=== PATIENT | female | born 1955 | race Caucasian/White ===

== ENCOUNTER 2019-05-18 11:48 | Day surgery (SDC) | payer SELFPAY ==
[2019-05-15 18:19] VITALS: BMI 34.4
[2019-05-18] VITALS (9 sets, daily range): BP systolic 137–180; BP diastolic 64–96; PULSE 62–99; RESP 14–18; TEMP 36.2–36.6; O2SAT 91–98
[2019-05-18] MEDS: sodium chloride 0.9% 1,000 ML 30 ML IV (13:05)
--- NOTE | 2019-05-18 13:18 | ANES.PREANES ---
Pre-Anesthetic Assessment Pre-Anesthetic Assessment: Height/Weight: Height 1.73 m Weight 102.965 kg Temp Pulse Resp BP Pulse Ox 97.1 F L 62 18 137/86 98 05/18/19 12:39 05/18/19 12:39 05/18/19 12:39 05/18/19 12:39 05/18/19 12:39 Preop Diagnosis: cholelithiasis Proposed Procedure: Operation Date: 05/18/19 14:15 Proposed Procedures p Laparoscopic Cholecystectomy/possible open(Not Applicable) - Timi Mark MD Last intake: Intake Last Liquid Date 05/18/19 Last Liquid Time 08:00 Last Solid Date 05/04/19 Last Intake: 08:00 Airway: Submandibular: WNL Cervical ROM: WNL MP: 2 GI: Comments: cholelithiasis Anesthetic Plan: ASA status: II Anesthesia: General Meds/Allergies Current Medications: Current Medications Generic Name Dose Route Start Last Admin Trade Name Freq PRN Reason Stop Dose Admin Sodium Chloride 1,000 mls @ 30 ml s/hr 05/18/19 12:45 05/18/19 13:05 Sodium Chloride 0.9% IV 05/19/19 12:44 30 mls/hr .Q24H AZALIA Administration PFSH Anesthesia PFSH: Family History (Updated 05/15/19 @ 18:14 by [employer]) Mother Heart disease Social History (Updated 05/15/19 @ 18:14 by [employer]) Smoking and tobacco status: never smoked Alcohol intake: never Data Anesthesia Cardiac Studies: No Data to Display
--- NOTE | 2019-05-18 14:00 | PM.HPUD ---
H&P update H&P Update: DATE OF SURGERY/PROCEDURE: 05/18/19 DATE H&P PERFORMED: 04/08/19 PLANNED PROCEDURE: Operation Date: 05/18/19 14:15 Proposed Procedures p Laparoscopic Cholecystectomy/possible open(Not Applicable) - Timi Mark MD Full H&P HPI: PLANNED PROCEDURE: Laparoscopic cholecystectomy HPI: This is a pleasant 63 years old female patient presenting with symptomatic cholelithiasis, shunt was counseled for laparoscopic cholecystectomy possible open. ROS: ROS: Pertinent systems have been reviewed Medications/Allergies: Current Medications: Current Medications Generic Name Dose Route Start Last Admin Trade Name Freq PRN Reason Stop Dose Admin Sodium Chloride 1,000 mls @ 30 ml s/hr 05/18/19 12:45 05/18/19 13:05 Sodium Chloride 0.9% IV 05/19/19 12:44 30 mls/hr .Q24H AZALIA Administration Perinent History: Family History: Family History (Updated 05/15/19 @ 18:14 by Kajal Saravia) Mother Heart disease Social History: Social History Smoking and tobacco status: never smoked Alcohol intake: never Pertinent Exam Findings: PHYSICAL EXAM: oriented x 3, clear to auscultation bilaterally and regular rate & rhythm OTHER PERTINENT EXAM FINDINGS: Patient is conscious alert oriented X3 BMI 35 Head and neck examination PERRLA no masses no cervical lymphadenopathy no jaundice Cardiac examination audible S1-S2 no murmurs no gallops no arrhythmias Abdomen nontender nondistended soft no organomegaly guarding or rigidity/no signs of peritonitis Obese Extremities no cyanosis no clubbing no edema Pertinent Data: PERTINENT DATA: Cholelithiasis A&P Assessment and plan (1) Cholelithiasis: Plan of care; After thorough history physical examination and reviewing the chart ,I counseled the patient for laparoscopic cholecystectomy possible open, indications risks including but not limited injury to the common bile duct and other viscera.benefits and alternatives all discussed with the patient, and she did agree to proceed. All questions have been answered and all concerns have been addressed to patient's satisfaction. Informed consent per chart Status: Acute Code(s): K80.20 - Calculus of gallbladder without cholecystitis without obstruction
[2019-05-18] MEDS: heparin 5,000 unit/mL INJ 1 mL 3000 UNIT SUBCUT (14:30)
[2019-05-18] MEDS: clindamycin 900 MG/50 ML PREMIX 100 MG IV (15:15)
[2019-05-18] MEDS: lidocaine 2% INJ 20 mL INJECTION (15:35)
--- NOTE | 2019-05-18 16:24 | PM.OP ---
Operative Report Date of procedure: 05/19/19 Preop Diagnosis: Symptomatic cholelithiasis Post-op diagnosis: other (Acute on top of chronic calculus cholecystitis with adhesions) Post-op Findings: Acute on top of chronic calculus cholecystitis with adhesions Procedure Done: Laparoscopic cholecystectomy Specimens removed/disposition: Gallbladder and contents Surgeon: Timi Mark [employer] Vehicle Driver: Moira Solomon Anesthesia: general and other ([employer]) Estimated blood loss (mL): 10 Complications: No immediate complication Findings: Acute on top of chronic calculus cholecystitis Condition: stable Disposition: same day Brief History: This is a pleasant 63 years old female patient with history of symptomatic cholelithiasis, patient was referred to me for further evaluation. Plan of care; After thorough history physical examination and reviewing the chart ,I counseled the patient for laparoscopic cholecystectomy possible open, indications risks including but not limited injury to the common bile duct and other viscera.benefits and alternatives all discussed with the patient, and she did agree to proceed. All questions have been answered and all concerns have been addressed to patient's satisfaction. Informed consent per chart Procedure: Patient was identified in the holding area and taken back to the operative suite, placed in supine position intubated by anesthesia . Time-out was done verifying the patient's name/date of /planned procedure and destination after the procedure, all were in agreement. SCDs confirmed to be functioning, preoperative antibiotics administered per protocol, and beta miriam protocol was confirmed. Patient was appropriately secured to the table, footboard was applied to the OR table, before prep and drape anesthesia was asked to tilt the table back and forth to make sure that the patient is appropriately secured and she was. Prep and drape of the abdomen was done under the usual sterile technique, followed by that supraumbilical skin incision,skin incision was done by a 15 blade knife, and stay sutures were applied to the fascia and [place] trocar technique was used to enter the abdominal without injuring any abdominal viscera, started by low flow gas insufflation followed by a high flow, started with a 10 mm laparoscope and under direct vision there was no evidence of any injuries, the scope then switched to a 30? ,10 millimeter scope and under direct visualization 5 millimeter trocar was inserted in the epigastric region followed by two 5 mm trocars were inserted in the right upper quadrant that was done after injection of local lidocaine 2% at all incision sites. Gallbladder showed acute calculus cholecystitis with edema &with adhesions Liver noticed to be enlarged likely due to fatty liver Patient was then positioned in the head up and tilted to the left dissection started by taking adhesions down using [place] forceps with heat, continued dissection until I identified the critical view of the cystic duct and cystic artery where seen connected to the gallbladder. Clips were applied on the cystic duct towards the common bile duct 1 towards the gallbladder then divided is in sharp scissors, 2 clips were then applied onto the cystic artery and 1 towards the gallbladder and divided by sharp scissors. Dissection was then carried along of the gallbladder from the gallbladder fossa using cautery as well as sharp dissection with heat energy. The gallbladder then was dissected out from the gallbladder fossa totally , cholecystectomy was then achieved and was placed in an Endo Catch bag and then retrieved from the [place] trocar site under direct visualization using a 5 mm 30? scope through the epigastric trocar, specimen was then passed to the circulating nurse to go for permanent pathology,irrigation and hemostasis was done to the gallbladder fossa after hemostasis was secured, final survey laparoscopy was done that showed no injuries.Suction irrigation was obtained The supraumbilical fascial defect was then closed using interrupted Vicryl sutures using a fascial closure device ;Vasquez Gilbert under direct visualization Gas was allowed to deflate,Trocars were then taken out under direct vision there was no evidence of bleeding Specimen was passed to the circulating nurse for permanent pathology. No drains were placed and the supraumbilical incision as well as all trocar sites were closed by by 4-0 Monocryl to approximate the skin edges of the supraumbilical incision, dressing was applied in the form of Dermabond and the patient patient got extubated and was taken to recovery area in a stable condition. Count of sponges, needles and instruments were completed at the end of the procedure I was present for the whole entire procedure.
--- NOTE | 2019-05-18 17:01 | SUR.PHASEI ---
1701 PT NOW REPOSITIONED SELF TO LT SIDE , DOES NOT AWAKE TO TOUCH, OR VERBAL STIMULI, VSS PT SATS ON 8L MASK 94, RESP 14 NO DISTRESS NOTED ABD SOFT.
--- NOTE | 2019-05-18 17:08 | SUR.PHASEI ---
PT ON RA , AWAKES TO VOICE, PT NODS HEAD YES TO PAIN BUT UNABLE TO VOICE NUMBER , FACE SCALE 1-2 RESP EVEN AND UNALBORED SATS 91\\5
[2019-05-18] MEDS: HYDROcodone-acetaminophen 5-325 mg Tablet 1 TAB PO (18:10)
== END 2019-05-18 18:35 | disposition home or self-care (01) ==
PROVIDERS: Family Provider Nurse Practitioner Family; PCP Nurse Practitioner Family; Visit Provider Surgery
PROC: 0FT44ZZ Resection of Gallbladder, Percutaneous Endoscopic Approach (ICD-10-PCS; CPT 47562; principal; 2019-05-18 14:15)
DX: K80.10 Calculus of gallbladder with chronic cholecystitis without obstruction (principal); Z82.49 Family history of ischemic heart disease and other diseases of the circulatory system
CPT/HCPCS: 47562; 12345; 88304; 96365; J0131; J1100; J1644; J2001; J2405; J2704; J3010; J3490; J7030

== ENCOUNTER → 2025-03-02 09:47 | Outpatient (BNVA) | payer MEDICARE, SELFPAY | PROVIDERS: Family Provider Nurse Practitioner Family; PCP Nurse Practitioner Family; Visit Provider Surgery | DX: R13.10 Dysphagia, unspecified (principal); K21.9 Gastro-esophageal reflux disease without esophagitis; R03.0 Elevated blood-pressure reading, without diagnosis of hypertension | CPT/HCPCS: 99204 ==

== ENCOUNTER 2025-03-10 08:30 | Outpatient (CLI) | payer MEDICARE, SELFPAY ==
--- NOTE | 2025-03-10 09:00 | FL_ITS ---
WS: [id number] Modified barium swallow, 03/10/2025 Clinical Data: Chest pressure when eating small amounts, food regurgitating and making it difficult to breathe. Comparison: None. Fluoroscopy time: 1min [id number] # of spot films: Findings: The patient swallowed the various mixtures normally. No significant residue was seen. There is minimal impingement by C5-C6 osteoarthritis onto the posterior hypopharynx. There is no aspiration or penetration the barium tablet moved normally from the oral pharynx into the hypopharynx, then the esophagus and finally the stomach. FL/FL barium swallow modifd [id number] Impression: Negative modified barium swallow.
== END 2025-03-10 08:31 | disposition home or self-care (01) ==
PROVIDERS: PCP Nurse Practitioner Family; Visit Provider Surgery
DX: R13.10 Dysphagia, unspecified (principal)
CPT/HCPCS: 74230; 92611

== ENCOUNTER 2025-03-11 06:53 | Day surgery (SDC) | payer MEDICARE, SELFPAY ==
[2025-03-11 07:15] VITALS: BP 165/77; PULSE 73; RESP 18; TEMP 36.3; O2SAT 96; BMI 42.5
--- NOTE | 2025-03-11 07:29 | P.HPUD_ITS ---
Surgery/Procedure H&P Update DATE OF PROCEDURE: March 11, 2025 DATE H&P PERFORMED: 03/02/25 H&P UPDATE INFORMATION: I have reviewed H&P completed within last 30 days, I have examined patient prior to procedure, No changes to prior documentation, H&P is in [facility] EMR on date indicated and Risks and benefits of the procedure reviewed PLANNED PROCEDURE: Operation Date: 03/11/25 09:15 Proposed Procedures p EGD Dilation W/ Balloon 15571 K21.9 R13.10(Not Applicable) - Roberto Barlow MD
--- NOTE | 2025-03-11 08:32 | P.ANESASSM_ITS ---
Pre-Anesthetic Assessment Height/Weight: Height 1.73 m Weight 127.006 kg Temp Pulse Resp BP Pulse Ox O2 Del Method 97.3 F L 73 18 165/77 96 Room Air 03/11/25 07:15 03/11/25 07:15 03/11/25 07:15 03/11/25 07:15 03/11/25 07:15 03/11/25 07:15 Operation Date: 03/11/25 09:15 Proposed Procedures p EGD Dilation W/ Balloon 73589 K21.9 R13.10(Not Applicable) - Roberto Barlow MD Familial anesthetic complications: None Was Beta Andrzej taken within 24 hours: N/A Was Clonidine taken within 24 hours: N/A Last intake: Intake Last Liquid Date 03/10/25 Last Liquid Time 14:00 Last Solid Date 03/10/25 Last Solid Time 14:00 Social No alcohol and No tobacco Exam alert, oriented x 3, clear to auscultation bilaterally and regular rate & rhythm Airway Submandibular: within normal limits Cervical ROM: within normal limits Mallampati: Class III Dentition: full History/ROS No significant history except as noted and No significant complaints Pulmonary None reported CV/HEM Hypertension None reported Hepatic None reported GI Gastroesophageal Reflux Disease (None this morning) Metabolic Morbid Obesity [facility] [place] None reported Neuropsych Anxiety and Depression Anesthetic Plan ASA status: 3 Anesthesia: Anesthesia Evaluation, General and MAC Risk of > 500 ml blood loss (7ml/kg in children): No Medications/Allergies Home Medications ?Medication ?Instructions ?Recorded ?Confirmed ?Last Taken ?Type aripiprazole 5 mg tablet 5 mg PO DAILY 03/02/2503/1103/10/25 History escitalopram oxalate 20 mg tablet 20 mg PO DAILY 03/0203/11/25 03/10/25 History Allergies Allergy/AdvReac Type Severity Reaction Status Date / Time Latex, Natural Rubber Allergy Severe ALGY-Rash Verified 03/11/25 07:15 Penicillins Allergy Intermediate ALGY-Rash Verified 03/11/25 07:15 adhesive tape Allergy Mild ALGY-Rash Verified 03/11/25 07:15 Current Medications Generic Name Dose Route Start Last Admin Trade Name Freq PRN Reason Stop Dose Admin Sodium Chloride 1,000 mls @ 15 mls/hr 03/11/25 07:14 03/11/25 07:24 Sodium Chloride 0.9% IV 03/12/25 07:13 15 mls/hr .Q24H PRN Administration COLONOSCOPY FLUIDS PFSH Anesthesia Surgical History History of orthopedic surgery History of laparoscopic cholecystectomy (~05/2019) Family History Mother Heart disease Denies family history of Anesthesia complication Bleeding disorder Social History Smoking and tobacco/nicotine status: never used tobacco/nicotine Second hand smoke exposure: No Alcohol intake: never Substance/Drug Use: never Adopted: No Caregiver/support person: No Lives independently: Yes Household members: none Housing: House Marital status: Single Highest education level completed: Some College, No Degree service: No Current occupational status: employed 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
[2025-03-11 09:06] VITALS: BP 143/80; PULSE 79; RESP 16; TEMP 36.3; O2SAT 94
[2025-03-11 09:16] VITALS: BP 119/82; PULSE 77; RESP 16; O2SAT 94
--- NOTE | 2025-03-11 10:24 | ANE.PACU2 ---
Inpatient post-anesthesia follow up: Airway intact: Yes Vital signs: Temperature 97.3 F Pulse Rate 77 Respiratory Rate 16 Blood Pressure 119/82 Pulse Oximetry 94 Oxygen Delivery Me thod Room Air Oxygen Flow Rate Fraction of Inspir ed Oxygen Hydration adequate: Yes Nausea and vomiting: No Pain level: 1 Mental status: Baseline
== END 2025-03-11 09:40 | disposition home or self-care (01) ==
PROVIDERS: PCP Nurse Practitioner Family; Visit Provider Surgery
DX: R13.10 Dysphagia, unspecified (principal); R12 Heartburn; K44.9 Diaphragmatic hernia without obstruction or gangrene; K21.00 Gastro-esophageal reflux disease with esophagitis, without bleeding; K29.40 Chronic atrophic gastritis without bleeding; I10 Essential (primary) hypertension; K21.9 Gastro-esophageal reflux disease without esophagitis; E66.01 Morbid (severe) obesity due to excess calories; Z68.41 Body mass index [BMI] 40.0-44.9, adult; F41.8 Other specified anxiety disorders
CPT/HCPCS: 43239; 88305; 88342; J2704; J3490; J7030

== ENCOUNTER → 2025-03-24 09:34 | Outpatient (BNVA) | payer MEDICARE, SELFPAY | PROVIDERS: PCP Nurse Practitioner Family; Visit Provider Surgery | DX: Z09 Encounter for follow-up examination after completed treatment for conditions other than malignant neoplasm (principal); R03.0 Elevated blood-pressure reading, without diagnosis of hypertension | CPT/HCPCS: 99213 ==

== ENCOUNTER → 2025-04-21 15:11 | Outpatient (BNVA) | payer MEDICARE, SELFPAY | PROVIDERS: PCP Nurse Practitioner Family; Visit Provider Specialist | DX: M16.0 Bilateral primary osteoarthritis of hip (principal); M54.50 Low back pain, unspecified; G89.29 Other chronic pain | CPT/HCPCS: 73502; 99204 ==